=== PATIENT | male | born 1995 | race Hispanic/Latino ===

== ENCOUNTER 2021-11-18 14:42 | Emergency (ER) | payer SELFPAY ==
[~2021-11-18] VITALS: Ht 172.7 cm; Wt 81.6 kg
[2021-11-18] MEDS ORDERED: CEFDINIR300 MG PO (15:28)
[2021-11-18] MEDS ORDERED: DOXYCYCLINE HY100 MG PO (15:28)
== END 2021-11-18 15:52 | disposition home or self-care (01) ==
LOC: FSED 15:30
DX: N45.1 Epididymitis (principal); N34.2 Other urethritis
CPT/HCPCS: 81003; 99282